=== PATIENT | male | born 1965 | race Caucasian/White ===

== ENCOUNTER 2016-05-08 09:35 | Emergency (ER) | payer SELFPAY ==
[~2016-05-08] VITALS: Ht 172.7 cm; Wt 77.0 kg
[2016-05-08 09:44] VITALS: BP 135/85; PULSE 77; RESP 18; TEMP 98; O2SAT 100
[2016-05-08] MEDS ORDERED: oxyCODONE/ACETAMINOPHEN 5 MG/325 MG TAB PO ONE (10:00)
[2016-05-08] MEDS ORDERED: CLINDAMYCIN 150 MG CAP PO ONE (10:00)
[2016-05-08] MEDS ORDERED: CLIN1CAP6 PO (10:02)
[2016-05-08] MEDS ORDERED: IBUP-232 PO (10:02)
[2016-05-08] MEDS ORDERED: HYDR-3533 PO (10:02)
--- NOTE | 2016-05-08 10:02 | PD ---
HPI Chief Complaint: Oral / Dental Pain or Problem Time Seen by Provider: 09:50 Travel History International Travel<30 days: No Contact w/Intl Traveler<30days: No Traveled to known affect area: No History of Present Illness HPI Patient is a 50-year-old male who presents to emergency room with complaints of left lower molar tooth pain. Patient reports that he began to have some sharp stabbing pain beginning yesterday afternoon. Patient reports that he has poor dentition at baseline, reports increased pain to his left lower tooth. Patient does have a dentist, reports that he is from out of town and does not have a dentist in the area. PFSH Past Medical History Medical History: Denies Significant Hx Tetanus Vaccination: > 5 Years Influenza Vaccination: No Past Surgical History Surgical History: No Previous Surgery Social History Alcohol Use: No Tobacco Use: Yes (1 PPD) Substance Use: No Allergies-Medications (Allergen,Severity, Reaction): Coded Allergies: Penicillin (Verified Allergy, Severe, 05/08/16) Review of Systems General / Constitutional: No: Fever Eyes: No: Visual changes HENT: Positive: Dental Difficulties, No: Headaches Cardiovascular: No: Chest Pain or Discomfort Respiratory: No: Shortness of Breath Gastrointestinal: No: Abdominal Pain Genitourinary: No: Dysuria Musculoskeletal: No: Pain Skin: No Rash Neurologic: No: Weakness Psychiatric: No: Depression Endocrine: No: Polydipsia Hematologic/Lymphatic: No: Easy Bruising Physical Exam Narrative GENERAL: Well-nourished, well-developed patient. SKIN: Warm and dry. HEAD: Normocephalic. EYES: No scleral icterus. No injection or drainage. MOUTH: Patient with poor dentition, patient with pain to left posterior molar with cracked tooth NECK: Supple, trachea midline. No JVD or lymphadenopathy. CARDIOVASCULAR: Regular rate and rhythm without murmurs, gallops, or rubs. RESPIRATORY: Breath sounds equal bilaterally. No accessory muscle use. GASTROINTESTINAL: Abdomen soft, non-tender, nondistended. MUSCULOSKELETAL: No cyanosis, or edema. BACK: Nontender without obvious deformity. No CVA tenderness. Data Data Last Documented VS Vital Signs Date Time Temp Pulse Resp B/P Pulse Ox O2 Delivery O2 Flow Rate FiO2 05/08/16 09:44 98.0 77 18 135/85 100 MDM Medical Decision Making Medical Screen Exam Complete: Yes Emergency Medical Condition: Yes Interpretation(s) Vital Signs Date Time Temp Pulse Resp B/P Pulse Ox O2 Delivery O2 Flow Rate FiO2 05/08/16 09:44 98.0 77 18 135/85 100 Differential Diagnosis Dental infection versus abscess Narrative Course Patient is a 50-year-old male who presents to emergency room with complaints of left lower tooth pain since yesterday afternoon. Patient with poor dentition at baseline, patient with what appears to be a cracked tooth versus infection to the left lower molar. Will start patient on antibiotics, patient understands need to follow-up with dentist as soon as possible. Patient given a dose of Percocet in the emergency room for pain, will give patient a prescription for this as well as patient is very uncomfortable. Patient understands that narcotic pain medications are addictive in nature and he must be careful with this medication. Diagnosis Primary Impression: Pain, dental Patient Instructions: Narcotic given in the ED Additional Instructions: Please follow-up with your dentist as soon as possible Please take probiotics or eat plenty of yogurt with your antibiotics Please take full course of antibiotics as prescribed Do not drive or operate heavy machinery while taking narcotic pain medications. Scripts Hydrocodone-Acetaminophen (Lortab)5-325 Mg Tab1 Tab PO Q6H PRN (PAIN) #7 TAB Ref 0 Prov:Isabella Gasca DO 05/08/16 Ibuprofen 600 Mg [id number] Mg PO Q6H PRN (Pain/Inflammation) #40 TAB Ref 0 Prov:Isabella Gasca DO 05/08/16 Clindamycin 300 Mg [id number] Mg PO TID 10 Days Ref 0 Prov:Isabella Gasca DO 05/08/16 Disposition: 01 DISCHARGE HOME Condition: Stable Isabella Gasca DO May 08, 2016 10:02
== END 2016-05-08 10:29 | disposition home or self-care (01) ==
LOC: PHED 09:35
DX: K08.89 Other specified disorders of teeth and supporting structures (principal); F17.210 Nicotine dependence, cigarettes, uncomplicated
CPT/HCPCS: 99282